=== PATIENT | male | born 1980 | race Caucasian/White ===

== ENCOUNTER 2020-05-14 17:44 | Emergency (ER) | payer OTHER, BC, SELFPAY ==
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
[2020-05-14 18:03] VITALS: BP 139/85; PULSE 71; RESP 18; TEMP 36; O2SAT 98
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
[2020-05-14 20:29] VITALS: BP 135/81; PULSE 70; RESP 18; O2SAT 97
== END 2020-05-14 20:31 | disposition home or self-care (01) ==
PROVIDERS: Emergency Provider Emergency Medicine; PCP Family Medicine
DX: S16.1XXA Strain of muscle, fascia and tendon at neck level, initial encounter (principal); V49.40XA Driver injured in collision with unspecified motor vehicles in traffic accident, initial encounter
CPT/HCPCS: 72125; 72128; 99284

== ENCOUNTER → 2021-12-11 08:23 | Outpatient (CLI) | payer BC, SELFPAY ==
--- NOTE | ~2021-12-11 | XR_ITS ---
EXAMINATION: XR thoracic spine 2V DATE: 12/11/2021 08:59 INDICATION: Mid back pain TECHNIQUE: AP, lateral and lateral swimmer's views of the thoracic spine were obtained. COMPARISON: 05/14/2020 FINDINGS: There is no fracture, dislocation, or subluxation. The vertebral body heights, alignment, a nd intervertebral disc spaces are normal. The paravertebral soft tissues are unremarkable. IMPRESSION: 1. Unremarkable thoracic spine. Reviewed, dictated and finalized at location F.
--- NOTE | ~2021-12-11 | XR_ITS ---
EXAMINATION: XR lumbar spine 2-3V DATE: 12/11/2021 08:59 INDICATION: Low back pain TECHNIQUE: Anteroposterior and lateral views of the lumbar spine, and cone-down lateral view of the l umbosacral junction were obtained. COMPARISON: 03/12/2018 FINDINGS: There is no fracture, dislocation, or subluxation. The vertebral body heights and intervert ebral disc spaces are normal. There is mild facet osteoarthritis of the lower lumbar spine. The bowel gas pattern is normal. IMPRESSION: 1. Unchanged mild facet osteoarthritis of the lower lumbar spine. Reviewed, dictated and finalized at location F.
--- NOTE | ~2021-12-11 | XR_ITS ---
EXAMINATION:XR_CERV2-3V_CR DATE: 12/11/2021 08:59 INDICATION: Neck pain TECHNIQUE: AP, lateral, and odontoid views of the cervical spine are provided. COMPARISON: None FINDINGS: There is reversal of the cervical spine which can be positional or due to muscular spasm. T he odontoid is not well demonstrated on the AP views but appears to be intact. No fracture is identif ied. Vertebral body heights and disk spaces are normal. Prevertebral soft tissues are normal. IMPRESSION: 1. No acute osseous abnormality. Reviewed, dictated and finalized at location F.
== END ==
PROVIDERS: PCP Family Medicine; Visit Provider Chiropractor
DX: M54.2 Cervicalgia (principal); M47.816 Spondylosis without myelopathy or radiculopathy, lumbar region; M54.6 Pain in thoracic spine
CPT/HCPCS: 72040; 72070; 72100

== ENCOUNTER → 2022-04-30 10:37 | Outpatient (CLI) | payer BC, SELFPAY ==
--- NOTE | ~2022-04-30 | XR_ITS ---
EXAM: XR shoulder LT min 2V DATE: 04/30/2022 10:57 HISTORY: HEARD A POP WHEN PUTING SHIRT ON PAIN RAISING ARM . COMPARISON: None available. FINDINGS: Normal mineralization. No fracture or dislocation. No lytic or blastic lesion. Very mild d egenerative change at the AC joint. No erosion or periosteal change. Soft tissues within normal limit s. IMPRESSION: No acute osseous finding in the left shoulder. Reviewed, dictated and finalized at location K.
== END ==
PROVIDERS: PCP Family Medicine; Visit Provider Nurse Practitioner Gerontology
DX: M25.512 Pain in left shoulder (principal)
CPT/HCPCS: 73030

== ENCOUNTER 2022-07-07 14:13 | Emergency (ER) | payer BC, SELFPAY ==
[2022-07-07 14:45] VITALS: BP 139/94; PULSE 73; RESP 18; TEMP 36.3; O2SAT 97
--- NOTE | 2022-07-07 16:16 | ED.NECK ---
HPI - Neck Pain/Injury General Chief Complaint: Neck Pain/Injury Stated Complaint: neck pain, no injury Time Seen by Provider: 07/07/22 15:55 History of Present Illness HPI Narrative: 41-year-old male here for evaluation of right-sided neck pain over the past 2 weeks. Patient states that the pain is intermittent in nature, worse when he turns his head to the left or right. The pain originates in his right trapezius muscle and moves up behind his ear. Has attempted Tylenol, ibuprofen, methocarbamol without relief of his symptoms. Last PCP upon symptom onset and was diagnosed with migraine and was given Fioricet without much relief of his pain. Denies fevers, chills, nausea, vomiting, changes to his vision, stiffness in the neck, history of malignancy. he has a history of drug abuse but never IVDU. Related Data Home Medications Medication Instructions Recorded Confirmed anastrozole 1 mg tablet 1 mg PO WEEKLY 01/02/21 07/04/22 testosterone cypionate 100 mg/mL 100 mg IM WEEKLY 01/02/21 07/04/22 intramuscular oil Allergies Allergy/AdvReac Type Severity Reaction Status Date / Time No Known Allergies Allergy Verified 07/07/22 15:27 Review of Systems Review of Systems: Gen: Denies fevers or chills Eyes: Denies eye pain or visual change ENT: Denies congestion Respiratory: Denies shortness of breath or cough CV: Denies chest pain or palpitations GI: Denies abdominal pain nausea, emesis or diarrhea : denies burning, urgency, frequency or hematuria Musculoskeletal: Reports neck pain. Denies back pain or muscle pain Neuro: Denies numbness, tingling, weakness or focal weakness Skin: Denies rash Except as documented, all other systems reviewed and negative [facility] Past Medical History Medical History Allergies Elevated liver enzymes History of anabolic steroid use Hyperlipidemia Hypogonadism in male Low testosterone Strain of muscle and tendon of back wall of thorax, subsequent encounter Surgical History Surgical History Vasectomy status Family History Family History Grandparent Hypertension Family history of elevated blood lipids Cerebrovascular accident, Onset Age: 76 Diabetes mellitus Mother Family history of diabetes mellitus in first degree relative Social History Social History (Updated 07/04/22 @ 07:58 by Radha Calderon) Social History: Smoking status: Never smoker Second hand tobacco smoke exposure: No Alcohol intake: never Substance use: never Substance use type: does not use Gender identity (if verbalized by the patient): Male Sexual Orientation (if Verbalized by the Patient): Straight or Heterosexual Exam Narrative: APPEARANCE: Well appearing, no pain in distress, well-nourished. Head: Normocephalic and atraumatic. EYES: PERRLA/EOMI, conjunctivae clear NOSE: No nasal drainage EARS: External ear normal in appearance THROAT: Oropharynx is clear. Mucous membranes are moist. NECK: No midline tenderness to C-spine. Paraspinal muscle tenderness present to the right trapezius. Full range of motion in neck, notes some pain with left lateral rotation. RESPIRATORY: Airway patent, respirations nonlabored. Clear to auscultation bilaterally, no rales, rhonchi, wheezing. CARDIOVASCULAR: Regular rate and rhythm without murmurs, rubs, or gallops. ABDOMINAL: Normoactive bowel sounds. Soft, nontender, nondistended. No rebound tenderness or guarding. MUSCULOSKELETAL: Extremities are warm and well-perfused. Moves all extremities well. No edema. NEURO: Normal speech. No focal neurologic deficits. SKIN: Skin is warm and dry. No rashes. PSYCHIATRIC: Normal affect/mood. Course Vital Signs Vital signs: Vital Signs Temperature 97.3 F L 07/07/22 14:45 Pulse Rate 73 07/07/22 14:45 Respiratory Rate
== END 2022-07-07 16:23 | disposition home or self-care (01) ==
PROVIDERS: Emergency Provider Physician Assistant; PCP Family Medicine
DX: S13.9XXA Sprain of joints and ligaments of unspecified parts of neck, initial encounter (principal); E78.5 Hyperlipidemia, unspecified; X58.XXXA Exposure to other specified factors, initial encounter
CPT/HCPCS: 99283

== ENCOUNTER 2023-08-25 09:26 | Outpatient (CLI) | payer BC, SELFPAY ==
--- NOTE | ~2023-08-25 | US_ITS ---
Abdominal Sonogram: Real-time sonographic imaging of the abdomen was performed. Clinical History: Abnormal findings of blood chemistry Findings: The liver appears echogenic, with no evidence of mass lesion or bile duct dilatation. Main portal vein demonstrates normal direction of flow. The spleen is normal in size without evidence of focal lesion. The gallbladder is well distended, and appears normal with no evidence of gallstone or wall thickening. The common bile duct measures 2 mm. The visualized pancreas, aorta, and IVC are un remarkable. The right kidney measures 13.0 cm in length and the left kidney measures 11.7 cm. There is no hydronephrosis or renal calculus. Impression: Diffuse fatty infiltration of liver. Reviewed, dictated and finalized at location M. L COORDINATOR Impression: Diffuse fatty infiltration of liver.
== END 2023-08-25 09:27 | disposition home or self-care (01) ==
LOC: ANHIMG 09:27
PROVIDERS: PCP Family Medicine; Visit Provider Physician Assistant
DX: R79.89 Other specified abnormal findings of blood chemistry (principal); K76.0 Fatty (change of) liver, not elsewhere classified
CPT/HCPCS: 76700

== ENCOUNTER 2023-09-01 13:25 | Outpatient (CLI) | payer BC, SELFPAY ==
--- NOTE | 2023-09-01 14:30 | NEURO_ITS ---
Impression: # Complains of hand numbness, not diabetic. # Evolving bilateral Carpal Tunnel Syndrome. # No ulnar neuropathy. # Normal needle/EMG exam. Nerve Conduction Studies Anti Sensory Summary Table Stim Site NR Peak (ms) P-T Amp (?V) Site1 Site2 Delta-P (ms) Dist (cm) Barron (m/s) Left Median Anti Sensory (2-3nd Digit) Wrist 3.3 27.4 Wrist 2-3nd Digit 3.3 14.0 42 Wrist 3.4 54.6 Wrist 2-3nd Digit 3.3 14.0 42 Right Median Anti Sensory (2-3nd Digit) Wrist 3.4 23.4 Wrist 2-3nd Digit 3.4 14.0 41 Wrist 3.3 23.8 Wrist 2-3nd Digit 3.4 14.0 41 Left Radial Anti Sensory (Base 1st Digit) Wrist 1.9 31.9 Wrist Base 1st Digit 1.9 0.0 Right Radial Anti Sensory (Base 1st Digit) Wrist 2.2 27.1 Wrist Base 1st Digit 2.2 0.0 Left Ulnar Anti Sensory (5th Digit) Wrist 2.6 11.7 Wrist 5th Digit 2.6 14.0 54 Right Ulnar Anti Sensory (5th Digit) Wrist 2.6 9.3 Wrist 5th Digit 2.6 14.0 54 Motor Summary Table Stim Site NR Onset (ms) O-P Amp (mV) Site1 Site2 Delta-0 (ms) Dist (cm) Barron (m/s) Left Median Motor (Abd Poll Brev) Wrist 3.4 1.6 Elbow Wrist 5.2 32.0 62 Elbow 8.6 1.8 Right Median Motor (Abd Poll Brev) Wrist 3.8 2.2 Elbow Wrist 5.5 32.0 58 Elbow 9.3 2.0 Left Ulnar Motor (Abd Dig Minimi) Wrist 2.5 8.1 A Elbow Wrist 5.5 32.0 58 A Elbow 8.0 7.1 Right Ulnar Motor (Abd Dig Minimi) Wrist 2.3 5.5 A Elbow Wrist 5.6 32.0 57 A Elbow 7.9 5.0 F Wave Studies NR F-Lat (ms) L-R F-Lat (ms) Left Median (Mrkrs) (Abd Poll Brev) 29.16 0.19 Right Median (Mrkrs) (Abd Poll Brev) 29.35 0.19 Left Ulnar (Mrkrs) (Abd Dig Min) 29.03 0.84 Right Ulnar (Mrkrs) (Abd Dig Min) 29.87 0.84 EMG Side Muscle Nerve Root Ins Act Fibs Amp Dur Recrt Comment Right 1stDorInt Ulnar C8-T1 Nml Nml Nml Nml Nml Right Ext Indicis Radial (Post Int) C7-8 Nml Nml Nml Nml Nml Right Ext Digitorum Radial (Post Int) C7-8 Nml Nml Nml Nml Nml Right BrachioRad Radial C5-6 Nml Nml Nml Nml Nml Right PronatorTeres Median C6-7 Nml Nml Nml Nml Nml Right Abd Poll Brev Median C8-T1 Nml Nml Nml Nml Nml Right ABD Dig Min Ulnar C8-T1 Nml Nml Nml Nml Nml Left 1stDorInt Ulnar C8-T1 Nml Nml Nml Nml Nml Left Ext Indicis Radial (Post Int) C7-8 Nml Nml Nml Nml Nml Left Ext Digitorum Radial (Post Int) C7-8 Nml Nml Nml Nml Nml Left BrachioRad Radial C5-6 Nml Nml Nml Nml Nml Left PronatorTeres Median C6-7 Nml Nml Nml Nml Nml Left Abd Poll Brev Median C8-T1 Nml Nml Nml Nml Nml Left ABD Dig Min Ulnar C8-T1 Nml Nml Nml Nml Nml MTDD
== END 2023-09-01 13:26 | disposition home or self-care (01) ==
LOC: ANHNEURO 13:27
PROVIDERS: PCP Family Medicine; Visit Provider Physician Assistant
DX: R20.0 Anesthesia of skin (principal); E78.5 Hyperlipidemia, unspecified; R20.2 Paresthesia of skin; R74.8 Abnormal levels of other serum enzymes; G56.03 Carpal tunnel syndrome, bilateral upper limbs
CPT/HCPCS: 95886; 95911

== ENCOUNTER 2024-07-14 21:12 | Emergency (ER) | payer BC, SELFPAY ==
[2024-07-14 21:27] VITALS: BP 117/69; PULSE 145; RESP 20; TEMP 38; O2SAT 96
[2024-07-14 22:28] LABS: Influenza A QL RT-PCR Negative (Negative); Influenza B QL RT-PCR Negative (Negative); RSV RNA, RT-PCR Negative (Negative); SARS-CoV-2 RNA PCR Negative (Negative)
== END 2024-07-14 23:50 | disposition left against medical advice (07) ==
LOC: ANHED 23:02
PROVIDERS: Emergency Provider Emergency Medicine; PCP Family Medicine
DX: R06.02 Shortness of breath (principal); Z20.822 Contact with and (suspected) exposure to COVID-19
CPT/HCPCS: 87637; 99199

== ENCOUNTER 2024-08-11 16:47 | Outpatient (CLI) | payer BC, SELFPAY ==
--- NOTE | ~2024-08-11 | XR_ITS ---
EXAM: XR knee LT 3V DATE: 08/11/2024 17:02 HISTORY: M25.562 - Pain in left knee . COMPARISON: None available. FINDINGS: Normal mineralization. No fracture or dislocation. No lytic or blastic lesion. Mild medial joint space narrowing. Mild tricompartmental osteophytosis. Moderate volume joint fluid. No erosion or periosteal change. Soft tissues within normal limits. IMPRESSION: Mild tricompartmental left knee osteoarthritis. Moderate knee joint effusion. Reviewed, dictated and finalized at location K. [employer] SCHOOL TECHNOLOGY TEACHER
--- OUTSIDE RECORDS SUMMARY | 2024-08-11 16:51 | XMS_ITS | Clinical Summary ---
Author Organization [facility] [employer] mentor | [employer] Address [address] [place] [address] Care Team Providers Care Insole Stiffener Name Role Phone Bianca Copeland MD Primary Care Provider + Source Comments [facility] [employer] mentor | [employer],non-owned Affiliates and Associated Physician Practices is amultiple site organization consisting of ambulatory clinics and hospital sitesin [place], [place], [place] and [place]. This disclosure is being madepursuant to the Care Everywhere program and may not contain all information available regarding this patient. Last updated 18.[employer] mentor | invest Allergies No known active allergies Medications * Be aware that medications may not be up to date on this document. Alwaysverify current medications with the patient. Medication Sig Dispensed Refills Start Date End Date Status predniSONE (DELTASONE) 10 MG tabletIndications:Rash 40mg daily for 3 days then 20mg daily for 2 days then stop 16 Tab 09/19/2016 Active Social History Tobacco Use Types Packs/Day Years Used Date Smoking Tobacco: Never Sex and Gender Information Value Date Recorded Sex Assigned at Not on file Gender Identity Not on file Sexual Orientation Not on file Last Filed Vital Signs Vital Sign Reading Time Taken Comments Blood Pressure 118/76 09/19/2016 2:27 PM LEAD NITRATE PROCESSOR Pulse 71 09/19/2016 2:27 PM LEAD NITRATE PROCESSOR Temperature 36.9 ??C (98.4 ??F) 09/19/2016 2:27 PM CS T Respiratory Rate 16 09/19/2016 2:27 PM LEAD NITRATE PROCESSOR Oxygen Saturation 97% 09/19/2016 2:27 PM LEAD NITRATE PROCESSOR Inhaled Oxygen Concentration - - Weight 95.3 kg (210 lb) 09/19/2016 2:27 PM LEAD NITRATE PROCESSOR Height 182.9 cm (6') 09/19/2016 2:27 PM LEAD NITRATE PROCESSOR Body Mass Index 28.48 09/19/2016 2:27 PM LEAD NITRATE PROCESSOR Plan of Treatment Health Maintenance Due Date Last Done Comments LIPID TESTING 1981 HIV SCREENING 1996 HEPATITIS C SCREENING 11/26/1999 DTAP/TDAP/TD VACCINES (1 - Tdap) 2000 HEPATITIS B VACCINE (1 of 3 - 19+ 3-dose series) 2000 COVID-19 VACCINE (1 - 2023-2 5 season) 2024 INFLUENZA VACCINE (#1) 2024 DEPRESSION SCREENING 07/13/2024 ZOSTER VACCINE (1 of 2) 12/01/2031 HIB VACCINE Aged Out No longer eligi ble based on patient's age to complete this topic HPV VACCINE Aged Out No longer eligi ble based on patient's age to complete this topic MENINGOCOCCAL (Group B) VACCINE Aged Out No longer eligible based on patient's age to complete this topic MENINGOCOCCAL VACCINE Aged Out No samreen campos eligible based on patient's age to complete this topic PNEUMOCOCCAL VACCINE Aged Out No long er eligible based on patient's age to complete this topic Care Teams Insole Stiffener Relationship Specialty Start Date End Date Bianca Copeland MD [address] [place] [address] PCP - General Family Medicine 03/19/16"
--- OUTSIDE RECORDS SUMMARY | 2024-08-11 16:51 | XMS_ITS | Clinical Summary ---
Author Organization [facility] Address [address] [place] [address]. [place] [address] [place] [address] Care Team Providers Care Clay Transporter Name Role Phone Bianca Copeland MD Primary Care Provider [phone] Allergies No known active allergies Medications XYOSTED 100 MG/0.5ML Solution Auto-injector Inject 100 mg into the muscle once a week. 06/27/2024 Active amoxicillin-cla vulanate (AUGMENTIN) 875-125 MG tablet Take 1 tablet (875 mg total) by mouth every 12 (twelve) hours for 4 days. 8 tablet 07/16/2024 5 dextromethorpha n-guaiFENesin ER (MUCINEX DM) 30-600 MG TABLET SR 12 HR 12 hr tablet Take 1 tablet by mouth every 12 (twelve) hours as needed. 10 tablet 07/16/2024 5 cyclobenzaprine (FLEXERIL) 5 MG tablet Take 1 tablet (5 mg total) by mouth 3 (three) times daily as needed for Muscle Spasms. 9 tablet 07/16/2024 5 Active Problems Problem Noted Date Diagnosed Date Pneumonia 07/15/2024 Encounters Date Type Department Care Team Description 07/15/2024 9:36 AM CHROME TANNER - 07/16/2024 12:18 PM [facility]ROME T[facility]NER Emergency [facility] Med/Surg [address] [place] [address] Paul Kennedy, Aileen Gunderson MD Back Pain; Pleuritic Chest Pain Discharge Disposition: Home or Self Care (Routine Discharge) 07/15/2024 Travel from Last 3 Months Social History Tobacco Use Types Packs/Day Years Used Date Smoking Tobacco: Never Smokeless Tobacco: Never Tobacco Cessation:Counseling Given: Not Answered Alcohol Use Standard Drinks/Week Comments Never 0 (1 standard drink = 0.6 oz pur e alcohol) B1300 Health Literacy Answer Date Recor ded How often do you need to hav e someone help you when you read instructions, pamphlets, or other written material from your doctor or pharmacy? Never 07/15/2024 [facility] Utilities Answer Date Recorded In the past 12 months has e [employer], gas, oil, or water [employer] threatened to shut off services in your home? No 07/15/2024 Humiliation, Afraid, Rape, and Kick questionnair e Answer Date Recorded Within the last year, have y ou been afraid of your partner or ex-partner? No 07/15/2024 Within the last year, have y ou been humiliated or emotionally abused in other ways by your partner or ex-partner? No Within the last year, have y ou been kicked, hit, slapped, or otherwise physically hurt by your partner or ex-partner? No 07/15/2024 Within the last year, have y ou been raped or forced to have any kind of sexual activity by your partner or ex-partner? No 07/15/2024 Social Connection and Isolation Panel [NHANES] A nswer Date Recorded In a typical week, how many times do you talk on the phone with family, friends, or neighbors? Once a week 07/15/2024 How often do you get together with friends or re latives? Never 07/15/2024 How often do you attend anglican or hindu serv ices? Never 07/15/2024 Do you belong to any clubs o r organizations such as anglican groups, unions, fraternal or athletic groups, or school groups? No 07/15/2024 How often do you attend meet ings of the clubs or organizations you belong to? Never 07/15/2024 Are you , , di vorced, , never , or living with a partner? 07/15/2024 AUDIT-C Answer Date Recorded Q1: How often do you have a drink containing alcohol? Never 07/15/2024 Q2: How many drinks containi ng alcohol do you have on a typical day when you are drinking? Patient does not drink Q3: How often do you have si x or more drinks on one occasion? Never 07/15/2024 Overall Financial Resource Strain (CARDIA) Answe r Date Recorded How hard is it for you to pa y for the very basics like food, housing, medical care, and heating? Not hard at all 07/15/2024 [facility] - Occupational Stress Questionnaire Answer Date Recorded Do you feel stress - tense, restless, nervous, or anxious, or unable to sleep at night because your mind is troubled all the time - these days? Not at all 07/15/2024 Exercise Vital Sign Answer Date Recorde d On average, how many days pe r week do you engage in moderate to strenuous exercise (like a brisk walk)? 5 days 07/15/2024 On average, how many minutes do you engage in exercise at this level? 60 min 07/15/2024 Hunger Vital Sign Answer Date Recorded Within the past 12 months, y ou worried that your food would run out before you got the money to buy more. Never true 07/15/19 25 Within the past 12 months, t he food you bought just didn't last and you didn't have money to get more. Never true 07/15/2024 PRAPARE - Transportation Answer Date Re corded In the past 12 months, has l ack of transportation kept you from medical appointments or from getting medications? No 09/2024 In the past 12 months, has l ack of transportation kept you from meetings, work, or from getting things needed for daily living? No 07/15/2024 Housing Stability Vital Sign Answer Kash e Recorded In the last 12 months, was t here a time when you were not able to pay the mortgage or rent on time? No 07/15/2024 In the past 12 months, how m any times have you moved where you were living? 0 07/15/2024 At any time in the past 12 m [facility], were you homeless or living in a senior living (including now)? No 07/15/2024 Sex and Gender Information Value Date Recorded Sex Assigned at Not on file Legal Sex Male 6:48 PM CHROME TANNER Gender Identity Not on file Sexual Orientation Not on file Last Filed Vital Signs Vital Sign Reading Time Taken Comments Blood Pressure 131/65 07/16/2024 8:30 AM [facility] T[facility]NER Pulse 95 07/16/2024 8:30 AM [facility]ROME TANNER Temperature 36.5 ??C (97.7 ??F) 07/16/2024 8:30 AM CS T Respiratory Rate 17 07/16/2024 8:30 AM CHROME TANNER Oxygen Saturation 98% 07/16/2024 8:30 AM [facility]OME TANNER Inhaled Oxygen Concentration - - Weight 113.9 kg (251 lb 1.7 oz) 07/15/2024 9:32 AM [facility]OME TANNER Height 185.4 cm (6' 1 ) 07/15/2024 9:32 AM [facility]ROME TANNER Body Mass Index 33.13 07/15/2024 9:32 AM CHROME TANNER Plan of Treatment Health Maintenance Due Date Last Done Comments Annual Physical 1984 Hepatitis C 12/01/1999 Hepatitis B Vaccines (1 of 3 - 19+ 3-dose series) 2000 COVID-19 Vaccine ( - 2023-2 5 season) 2024 04/26/2021, 03/30/2021 Influenza Adult (#1) 2024 05/15/2020 DTaP, Tdap and Td Vaccines ( 2 - Td or Tdap) 04/25/2028 04/25/2018 HPV Vaccines Aged Out No longer eligi ble based on patient's age to complete this topic Meningococcal B Vaccine Aged Out No l onger eligible based on patient's age to complete this topic Meningococcal Vaccine Aged Out No samreen campos eligible based on patient's age to complete this topic Pneumococcal Vaccine: Pediatrics (0 to 5 Years) and At-Risk Patients (6 to 64 Years) Aged Out No longer eligible b ased on patient's age to complete this topic RSV Immunizations Under 20 Months Aged Out No longer eligible b ased on patient's age to complete this topic Procedures Procedure Name Priority Date/Time Associated Diagnosis Comments BASIC METABOLIC PANEL Routine 07/16/2024 4:39 AM CHROME TANNER CBC W/DIFF AUTOMATED Routine 07/16/2024 4:39 AM CHROME TANNER CULTURE, BACTERIA, BLOOD STAT 07/15/2024 3:37 PM [facility]ROME TANNER RESPIRATORY PCR PANEL 2 STAT 07/15/2024 2:25 PM [facility] TANNER LACTIC ACID W REFLEX (SEPSIS) STAT 07/15/2024 2:18 PM CHROME TANNER CTA CHEST PE PROTOCOL STAT 07/15/2024 12:22 PM [facility]ROME TANNER TROPONIN, QUANT STAT 07/15/2024 11:46 AM CHROME TANNER XR CHEST PORTABLE STAT 07/15/2024 10: 00 AM CHROME TANNER D-DIMER, QUANTITATIVE STAT 07/15/2024 9:43 AM CHROME TANNER TROPONIN, QUANT STAT 07/15/2024 9:43 AM [facility]ROME TANNER COMPREHENSIVE METABOLIC PANEL STAT 07/15/2024 9:43 AM CHROME TANNER CBC W/DIFF AUTOMATED STAT 07/15/2024 9:43 AM CHROME TANNER CRITICAL CARE Routine 07/15/2024 9:36 AM CHROME TANNER ECG 12-LEAD STAT 07/15/2024 9:34 AM CHROME TANNER from Last 3 Months Results * (ABNORMAL) BASIC METABOLIC PANEL (07/16/2024 4:39 AM CHROME TANNER) GLUCOSE 237(H) 70 - 99 MG/DL 07/16/2024 5:08 AM [facility] TAN[facility] BUN 28(H) 7 - 18 MG/DL 07/16/2024 5:08 AM [facility] T[facility] CREATININE S/P/B 1.28 0.7 - 1.3 MG/DL 07/16/2024 5:08 AM [facility] TANNER [facility] SODIUM S/P/B 135(L) 136 - 145 MMOL/L 07/16/2024 5:08 AM [facility] POTASSIUM S/P/B 3.6 3.5 - 5.1 MMOL/L 07/16/2024 5:08 AM [facility] CHLORIDE S/P/B 104 97 - 115 MMOL/L 07/16/2024 5:08 AM [facility] CO2 27.5 21 - 32 MMOL/L 07/16/2024 5:08 AM [facility] CALCIUM S/P/B 9.0 8.5 - 10.1 MG/DL 07/16/2024 5:08 AM [facility] ANION GAP 3.5 2 - 10 MMOL/L 07/16/2024 5:08 AM [facility] BUN CREATININE RATIO 21.9 6 - 26 07/16/2024 5:08 AM [facility] GFR ESTIMATE 72(L) >90 ML/MIN/1.7 3 M2 07/16/2024 5:08 AM [facility] Comment: NOTE: eGFR is not calculated for patients <18 years of age or gender unknown. This is an estimated GFR calculation using the new CKD EPI creatinine equation without race and so does not require a correction factor for race. This estimated GFR should not be used for calculating drug doses. 07/16/2024 4:39 AM [facility] TANNER Aileen Mahmood MD LABORATORY Final Res ult [facility] [address] [place] [address], * (ABNORMAL) CBC W/DIFF AUTOMATED (07/16/2024 4:39 AM [facility]OME TANNER) Only the most recent of2 resultswithin the time period is included. WBC 18.80(H) 4.5 - 11.0 x10'3/uL 07/16/2024 5:13 AM [facility] RBC 5.25 4.70 - 6.10 x10'6/uL 07/16/2024 5:13 AM [facility] HGB 14.6 14.0 - 18.0 G/DL 07/16/2024 5:13 AM [facility] HCT 42.9(L) 43.0 - 54.0 % 07/16/2024 5:13 AM [facility] MCV 81.7 80.0 - 94.0 FL 07/16/2024 5:13 AM [facility] MCH 27.8 27.0 - 31.0 PG 07/16/2024 5:13 AM [facility] MCHC 34.0 32.0 - 36.0 G/DL 07/16/2024 5:13 AM [facility] RDW 13.0 11.5 - 14.5 % 07/16/2024 5:13 AM [facility] PLT 183 130 - 400 x10'3/uL 07/16/2024 5:13 AM [facility] MPV 10.0 9.3 - 12.2 FL 07/16/2024 5:13 AM [facility] DIFFERENTIAL TYPE MANUAL DIFFERENTIAL 07/16/2024 5:20 AM [facility] SEG NEUTROPHILS 83 % 5:20 AM [facility] LYMPHOCYTES 4 % 07/16/2024 5:20 AM [facility] MONOCYTES 1 % 07/16/2024 5:20 AM [facility] BANDS 12 % 07/16/2024 5:20 AM [facility] NRBC 1(H) 0 /100 WBC 07/16/2024 5:20 AM [facility] ABS. NEUTROPHILS 17.86(H) 1.80 - 7.70 x10'3/uL 07/16/2024 5:20 AM [facility] ABS. LYMPHOCYTES 0.75(L) 1.00 - 4.80 x10'3/uL 07/16/2024 5:20 AM [facility] ABS. MONOCYTES 0.19(L) 0.30 - 0.82 x10'3/uL 07/16/2024 5:20 AM [facility] ABS. NUCLEATED RBC'S 0.19(H) 0.00 - 0.01 x10'3/uL 07/16/2024 5:20 AM [facility] RBC MORPHOLOGY SLIDE REVIEWED 2024 5:20 AM [facility] ACANTHOCYTES 1+ 07/16/2024 5:20 AM [facility] PLT EST. ADEQUATE 07/16/2024 5:20 AM [facility] 07/16/2024 4:39 AM CHROME TANNER us Aileen Mahmood MD LABORATORY Final Res ult [facility] [address] [place] [address], * CULTURE, BACTERIA, BLOOD (07/15/2024 3:37 PM [facility] TANNER) SPEC DESCRIPTION BLOOD 07/15/2024 1:39 PM [facility] SPECIAL REQUESTS NO SPECIAL REQUEST 07/15/2024 1:39 PM [facility] CULTURE RESULT NO GROWTH 5 DAYS 07/20/2024 6:37 AM [facility] BLOOD SPECIMEN OBTAINED FOR BLOOD CULTURE / Unknown 07/15/2024 3:37 PM [facility]NER 07/15/2024 3:45 PM [facility]ANNER Paul Kennedy PA-C MICROBIOLOGY - GENERAL HUMBERTO STEWARD Final Result [facility] [address] [place] [address], * (ABNORMAL) RESPIRATORY PCR PANEL 2 (07/15/2024 2:25 PM [facility]OME TANNER) Pathologist [facility] ADENOVIRUS PCR (RESP) NOT DETECTED NOT DETECTED 07/15/2024 3:27 PM [facility] T[facility] CORONAVIRUS 229E PCR (RESP) NOT DETECTED NOT DETECTED 07/15/2024 3:27 PM [facility] T[facility] CORONAVIRUS HKU1 PCR (RESP) NOT DETECTED NOT DETECTED 07/15/2024 3:27 PM [facility] TAN[facility] CORONAVIRUS NL63 PCR (RESP) NOT DETECTED NOT DETECTED 07/15/2024 3:27 PM [facility] T[facility] CORONAVIRUS OC43 PCR (RESP) NOT DETECTED NOT DETECTED 07/15/2024 3:27 PM [facility] T[facility] METAPNEUMOVIRUS PCR (RESP) NOT DETECTED NOT DETECTED 07/15/2024 3:27 PM [facility] T[facility] RHINOVIRUS/ENTEROV IRUS PCR (RESP) NOT DETECTED NOT DETECTED 07/15/2024 3:27 PM [facility] T[facility] INFLUENZA A PCR (RESP) NOT DETECTED NOT DETECTED 07/15/2024 3:27 PM [facility] T[facility] INFLUENZA B PCR (RESP) NOT DETECTED NOT DETECTED 07/15/2024 3:27 PM [facility] T[facility] PARAINFLUENZA 1 PCR (RESP) NOT DETECTED NOT DETECTED 07/15/2024 3:27 PM [facility] T[facility] PARAINFLUENZA 2 PCR (RESP) NOT DETECTED NOT DETECTED 07/15/2024 3:27 PM [facility] TANNER [facility] PARAINFLUENZA 3 PCR (RESP) NOT DETECTED NOT DETECTED 07/15/2024 3:27 PM [facility] TAN[facility] PARAINFLUENZA 4 PCR (RESP) NOT DETECTED NOT DETECTED 07/15/2024 3:27 PM [facility] T[facility] RSV PCR (RESP) DETECTED(A) NOT DETECTED 07/15/2024 3:27 PM [facility] T[facility]NER [facility] B PARAPERTUSIS PCR (RESP) NOT DETECTED NOT DETECTED 07/15/2024 3:27 PM [facility] T[facility] BORDETELLA PERTUSSIS PCR (RESP) NOT DETECTED NOT DETECTED 07/15/2024 3:27 PM [facility] T[facility] CHLAMYDOPHILA PNEUMONIAE PCR (RESP) NOT DETECTED NOT DETECTED 07/15/2024 3:27 PM [facility] MYCOPLASMA PNEUMONIAE PCR (RESP) NOT DETECTED NOT DETECTED 07/15/2024 3:27 PM [facility] T[facility] CORONAVIRUS SARS COV 2 PCR (RESP) NOT DETECTED NOT DETECTED 07/15/2024 3:27 PM [facility] NASOPHARYNGEAL SWAB / Unknown 07/15/2024 2:25 PM [facility] Aileen Mahmood MD MICROBIOLOGY - GENERAL OR DERABLES Final Result [facility] [address] [place] [address], [place] [phone] * LACTIC ACID W REFLEX (SEPSIS) (07/15/2024 2:18 PM [facility]) LACTIC ACID VENOUS 2.0 0.4 - 2.0 MMOL/L 07/15/2024 2:55 PM [facility] 07/15/2024 2:18 PM [facility] Paul Kennedy PA-C LABORATORY Final Resul t [facility] [address] [place] [address], * CTA CHEST PE PROTOCOL (07/15/2024 12:22 PM [facility]NER) Anatomical Region Laterality Modality Chest Computed Tomogra phy 07/15/2024 1:10 PM [facility] Impressions 07/15/2024 1:13 PM [facility] IMPRESSION: Somewhat suboptimal opacification of the pulmonary arteries, possibly related to phase of contrast. ??No evidence of large or central pulmonary embolism. Consolidation in short of the left lower lobe concerning for pulmonary edema. ??Given the minimal air bronchograms, follow-up the resolution recommended to exclude underlying neoplasm. 3 month follow-up CT recommended. Limited evaluation of the upper abdomen demonstrates diffuse hepatic steatosis. ??Correlation for steatohepatitis recommended. Referred By: ?? Interpreted By: Rosendo Panchal MD, 07/15/2024 1:10 PM Narrative 07/15/2024 1:13 PM [facility] [address] [place], [place] [address] EXAMINATION: CT ANGIOGRAM CHEST WITH CONTRAST EXAM DATE: 07/15/2024 12:18 PM REASON FOR EXAM: ??pain, hemoptysis, elevated dimer ?? COMPARISON: None TECHNIQUE: Axial images through the chest after injection of 80 mL Isovue-370. 3-D post processed images were reconstructed on an independent workstation with concurrent physician supervision. Dose lowering technique was used for this study which may include, but is not limited to, dose reduction techniques, automated exposure control, use of iterative ??reconstruction and ALARA (As low As Reasonably Achievable)/Image Gently techniques. FINDINGS: Somewhat suboptimal opacification of the pulmonary arteries, possibly related to phase of contrast. ??No evidence of large or central pulmonary embolism. Consolidation in short of the left lower lobe concerning for pulmonary edema. ??Given the minimal air bronchograms, follow-up the resolution recommended to exclude underlying neoplasm. No pneumothorax. ??No pleural effusion. No axillary or supraclavicular lymphadenopathy. ??Bilateral gynecomastia. Heart size normal. ??No pleural effusion. No mediastinal or hilar lymphadenopathy. Limited evaluation of the upper abdomen demonstrates diffuse hepatic steatosis. ??Correlation for steatohepatitis recommended. Bones: No suspicious lesion or fracture. Procedure Note Rosendo Panchal MD - 07/15/[address] [address] EXAMINATION: CT ANGIOGRAM CHEST WITH CONTRAST EXAM DATE: 07/15/2024 12:18 PM REASON FOR EXAM: pain, hemoptysis, elevated dimer COMPARISON: None TECHNIQUE: Axial images through the chest after injection of 80 mLIsovue-370. 3-D post processed images were reconstructed on an independent workstationwith concurrent physician supervision. Dose lowering technique was used for this study which may include, but isnot limited to, dose reduction techniques, automated exposure control, use of iterativereconstruction and ALARA (As low As Reasonably Achievable)/Image Gently techniques. FINDINGS: Somewhat suboptimal opacification of the pulmonary arteries, possiblyrelated to phase of contrast. No evidence of large or central pulmonaryembolism. Consolidation in short of the left lower lobe concerning for pulmonaryedema. Given the minimal air bronchograms, follow-up the resolutionrecommended to exclude underlying neoplasm. No pneumothorax. No pleural effusion. No axillary or supraclavicular lymphadenopathy. Bilateral gynecomastia. Heart size normal. No pleural effusion. No mediastinal or hilar lymphadenopathy. Limited evaluation of the upper abdomen demonstrates diffuse hepaticsteatosis. Correlation for steatohepatitis recommended. Bones: No suspicious lesion or fracture. IMPRESSION: Somewhat suboptimal opacification of the pulmonary arteries, possiblyrelated to phase of contrast. No evidence of large or central pulmonaryembolism. Consolidation in short of the left lower lobe concerning for pulmonaryedema. Given the minimal air bronchograms, follow-up the resolutionrecommended to exclude underlying neoplasm. 3 month follow-up CT recommended. Limited evaluation of the upper abdomen demonstrates diffuse hepaticsteatosis. Correlation for steatohepatitis recommended. Referred By: Interpreted By: Rosendo Panchal MD, 07/15/2024 1:10 PM Paul Kennedy PA-C CT Final Resul t * TROPONIN, QUANT (07/15/2024 11:46 AM [facility]) Only the most recent of2 resultswithin the time period is included. TROPONIN I HIGH SENSITIVITY 5 <79 ng/L 07/15/2024 12:16 PM [facility] Comment: HIGH DOSES OF BIOTIN, TROPONIN-SPECIFIC AUTOANTIBODIES, AND ANTIBODY THERAPY CONTAINING HAMA MAY INTERFERE WITH THIS TEST RESULT. CORRELATION TO CLINICAL HISTORY AND PRESENTATION RECOMMENDED. 07/15/2024 11:4 6 AM [facility] Paul Kennedy PA-C LABORATORY Final Resul t [facility] [address] [place] [address], [place] [phone] * XR CHEST PORTABLE (07/15/2024 10:00 AM [facility]) Anatomical Region Laterality Modality Chest Radiographic Za ging 07/15/2024 10:2 2 AM [facility] Impressions 07/15/2024 10:23 AM [facility] IMPRESSION: No radiographic evidence of an acute cardiopulmonary abnormality. Ordered By: PAUL KENNEDY Interpreted By: Clarence Gonzalez MD, 07/15/2024 10:22 AM Narrative 07/15/2024 10:23 AM [facility] [address] [address] Examination: Chest radiograph Exam date/time: 07/15/2024 9:39 AM Reason For Exam: ??Chest pain ? Comparison: None available Technique: Upright AP view of the chest. Findings: ??Heart size is at the upper limits of normal. Pulmonary vascular pattern appears unremarkable. No focal pulmonary consolidation. No pleural effusion. No pneumothorax. Procedure Note Clarence Gonzalez MD - 07/15/[address] [address] Examination: Chest radiograph Exam date/time: 07/15/2024 9:39 AM Reason For Exam: Chest pain Comparison: None available Technique: Upright AP view of the chest. Findings: Heart size is at the upper limits of normal. Pulmonary vascularpattern appears unremarkable. No focal pulmonary consolidation. No pleuraleffusion. No pneumothorax. IMPRESSION: No radiographic evidence of an acute cardiopulmonary abnormality. Ordered By: PAUL KENNEDY Interpreted By: Clarence Gonzalez MD, 07/15/2024 10:22 AM Paul Kennedy PA-C GENERAL IMAGING Final Resul t * (ABNORMAL) COMPREHENSIVE METABOLIC PANEL (07/15/2024 9:43 AM [facility]) GLUCOSE 185(H) 70 - 99 MG/DL 07/15/2024 10:23 AM [facility] BUN 25(H) 7 - 18 MG/DL 07/15/2024 10:23 AM [facility] CREATININE S/P/B 1.60(H) 0.7 - 1.3 MG/DL 07/15/2024 10:23 AM [facility] SODIUM S/P/B 137 136 - 145 MMOL/L 07/15/2024 10:23 AM [facility] POTASSIUM S/P/B 3.8 3.5 - 5.1 MMOL/L 07/15/2024 10:23 AM [facility] CHLORIDE S/P/B 103 97 - 115 MMOL/L 07/15/2024 10:23 AM [facility] CO2 28.2 21 - 32 MMOL/L 07/15/2024 10:23 AM [facility] CALCIUM S/P/B 9.1 8.5 - 10.1 MG/DL 07/15/2024 10:23 AM [facility] BILIRUBIN TOTAL S/P/B 2.4(H) 0.2 - 1.2 MG/DL 07/15/2024 10:23 AM [facility] Comment: THIS ASSAY IS NOT RECOMMENDED FOR PATIENTS UNDERGOING TREATMENT WITH ELTROMBOPAG DUE TO THE POTENTIAL FOR FALSELY ELEVATED RESULTS. TOTAL PROTEIN S/P/B 7.6 6.4 - 8.2 G/DL 07/15/2024 10:23 AM [facility] ALBUMIN S/P/B 3.2(L) 3.4 - 5.0 G/DL 07/15/2024 10:23 AM [facility] AST 21 15 - 37 U/L 07/15/2024 10:23 AM [facility] ALT 41 16 - 60 U/L 07/15/2024 10:23 AM [facility] ALKALINE PHOSPHATASE S/P/B 74 50 - 136 U/L 07/15/2024 10:23 AM [facility] ANION GAP 5.8 2 - 10 MMOL/L 07/15/2024 10:23 AM [facility] BUN CREATININE RATIO 15.6 6 - 26 07/15/2024 10:23 AM [facility] A/G RATIO 0.7(L) 1.0 - 2.0 RATIO 07/15/2024 10:23 AM [facility] TANNER [facility] GFR ESTIMATE 55(L) >90 ML/MIN/1.7 3 M2 07/15/2024 10:23 AM [facility] TANNER [facility] Comment: NOTE: eGFR is not calculated for patients <18 years of age or gender unknown. This is an estimated GFR calculation using the new CKD EPI creatinine equation without race and so does not require a correction factor for race. This estimated GFR should not be used for calculating drug doses. 07/15/2024 9:43 AM [facility] Paul Kennedy PA-C LABORATORY Final Resul t Performing Organization Address [facility] Co de Phone Number [facility] [address] [place] [id number], [place] [phone] * (ABNORMAL) D-DIMER, QUANTITATIVE (07/15/2024 9:43 AM [facility]ANNER) D-DIMER 969(HH) 0 - 500 ng{FEU}/mL 07/15/2024 11:10 AM [facility] Comment: D-Dimer values less than or equal to 500 ng/mL FEU have a negative predictive value of >95% for exclusion of deep vein thrombosis and pulmonary embolism. In patients over 50 (who tend to have higher normal baseline D-Dimer values), recent studies suggest age-adjusted D-Dimer cutoff values (calculated as: age [years] x 10 ng/mL) result in equivalent outcomes and no additional false negative findings. Successful Call: [facility] called 07/15/2024 11:10 AM to EMERGENCY ROOM (Mariel/LYNDSAY CRISTINA) by [id number]. Read Back: Yes 07/15/2024 9:43 AM CHROME TANNER Paul Kennedy PA-C LABORATORY Final Resul t Performing Organization Address City/[facility]/ZIP Co de Phone Number [facility] [address] [place] [address], * Critical Care (07/15/2024 9:36 AM CHROME TANNER) Narrative Bjorn Stephenson MD - 07/15/2024 9:36 AM CHROME TANNER Paul Kennedy PA-C ? 07/15/2024 ??2:02 PM Critical Care Performed by: Paul Kennedy PA-C Authorized by: Paul Kennedy PA-C ?? Critical care provider statement: ??Critical care time (minutes): ??60 ??Critical care start time: ??07/15/2024 12:49 PM ??Critical care end time: ??07/15/2024 1:49 PM ??Critical care time was exclusive of: ??Separately billable procedures and treating other patients and teaching time ??Critical care was necessary to treat or prevent imminent or life-threatening deterioration of the following conditions: ??Renal failure and sepsis ??Critical care was time spent personally by me on the following activities: ??Blood draw for specimens, development of treatment plan with patient or surrogate, evaluation of patient's response to treatment, examination of patient, obtaining history from patient or surrogate, ordering and performing treatments and interventions, ordering and review of laboratory studies, ordering and review of radiographic studies, pulse oximetry and re-evaluation of patient's condition ??I assumed direction of critical care for this patient from another provider in my specialty: no ?Care discussed with: admitting provider ?? Paul Kennedy PA-C PROCEDURE/MINOR SURGICAL OR DERABLES Final Result * ECG 12 lead (07/15/2024 9:34 AM CHROME TANNER) 07/15/2024 9:34 AM CHROME TANNER Narrative [facility] RAD - 07/15/2024 9:32 AM CHROME TANNER ?[facility] ? [address], [place] ? Test Date: ?2024-07-15 Pat Name: ? MARCIA AMIN ? Department: ?? 41 ? Room: ? Gender: ? Male ? Vegetable Sorter: ?? [id number] : ?1980 ? Requested By: PAUL KENNEDY Order Number: [id number] ? Reading MD: ?? Rg Espinosa ? Measurements Intervals ?[place] ? Rate: ? 118 ?P: ?42 [place]: ? 129 ?QRS: ?53 QRSD: ? 101 ?T: ?43 QT: ? 300 ? QTc: ?422 ? Interpretive Statements SINUS TACHYCARDIA ABNORMAL RHYTHM ECG No previous ECG available for comparison ME TANNER Procedure Note Rg Espinosa MD - 07/15/2024 [facility] [address] Test Date: 2024-07-15 Pat Name: MARCIA AMIN Department: 41 Room: Gender: Male Vegetable Sorter: [id number] : 1980 Requested By: PAUL KENNEDY Order Number: [id number] Reading MD: Rg Espinosa Measurements Intervals [place] Rate: 118 P: 42 [place]: 129 QRS: 53 QRSD: 101 T: 43 QT: 300 QTc: 422 Interpretive Statements SINUS TACHYCARDIA ABNORMAL RHYTHM ECG No previous ECG available for comparison ME TANNER us Paul Kennedy PA-C ECG ORDERABLES Final Resul t [facility] RAD [facility] Last 3 Months Insurance [facility] Care Teams Clay Transporter Relationship Specialty Start Date End Date Bianca Copeland MD [address] [facility] [address] [place] [address] PCP - General FAMILY PRACTICE 07/15/24
--- OUTSIDE RECORDS SUMMARY | 2024-08-11 16:51 | XMS_ITS | Referral Summary ---
Author Organization [facility] Address [address] [place] [address] Care Team Providers Care Ceo & Co Founder Name Role Phone Bianca Copeland MD Primary Care Provider + Source Comments [facility],non-owned Affiliates and Associated Physician Practices is amultiple site organization consisting of ambulatory clinics and hospital sitesin [place], [place], [place] and [place]. This disclosure is being madepursuant to the Care Everywhere program and may not contain all information available regarding this patient. Last updated 18.[employer] [facility] Allergies No known active allergies Medications * [...] Comments Blood Pressure 118/76 09/19/2016 2:27 PM BROADCAST DESIGNER Pulse 71 09/19/2016 2:27 PM BROADCAST DESIGNER Temperature 36.9 ??C (98.4 ??F) 09/19/2016 2:27 PM CS T Respiratory Rate 16 09/19/2016 2:27 PM BROADCAST DESIGNER Oxygen Saturation 97% 09/19/2016 2:27 PM BROADCAST DESIGNER Inhaled Oxygen Concentration - - Weight 95.3 kg (210 lb) 09/19/2016 2:27 PM BROADCAST DESIGNER Height 182.9 cm (6') 09/19/2016 2:27 PM BROADCAST DESIGNER Body Mass Index 28.48 09/19/2016 2:27 PM BROADCAST DESIGNER Plan of Treatment Not on file Care Teams Ceo & Co Founder Relationship Specialty Start Date End Date Bianca Copeland MD [address] [place] [address] PCP - General Family Medicine 03/19/16
--- OUTSIDE RECORDS SUMMARY | 2024-08-11 16:51 | XMS_ITS | Patient Health Summary ---
Author Organization [facility] Address [address] [facility] [place] [address] Care Team Providers Care Wood [employer] Products Labourer Name Role Phone Bianca Copeland MD Primary Care Provider + Note from [facility],non-owned Affiliates and Associated Physician Practices is amultiple site organization consisting of ambulatory clinics and hospital sitesin [place], [place], [place] and [place]. This disclosure is being madepursuant to the Care Everywhere program and may not contain all information available regarding this patient. Last updated 18.[facility] Allergies No known active allergies Medications * Be aware that medications may not be up to date on this document. Alwaysverify current medications with the patient. * predniSONE (DELTASONE) 10 MG tablet(Started 09/19/2016) 40mg daily for 3 days then 20mg daily for 2 days then stop Social History Tobacco Use Types Packs/Day Years Used Date Smoking Tobacco: Never Sex and Gender Information Value Date Recorded Sex Assigned at Not on file Gender Identity Not on file Sexual Orientation Not on file Last Filed Vital Signs Vital Sign Reading Time Taken Comments Blood Pressure 118/76 09/19/2016 2:27 PM ORACLE PROGRAMMER ANALYST Pulse 71 09/19/2016 2:27 PM ORACLE PROGRAMMER ANALYST Temperature 36.9 ??C (98.4 ??F) 09/19/2016 2:27 PM CS T Respiratory Rate 16 09/19/2016 2:27 PM ORACLE PROGRAMMER ANALYST Oxygen Saturation 97% 09/19/2016 2:27 PM ORACLE PROGRAMMER ANALYST Inhaled Oxygen Concentration - - Weight 95.3 kg (210 lb) 09/19/2016 2:27 PM ORACLE PROGRAMMER ANALYST Height 182.9 cm (6') 09/19/2016 2:27 PM ORACLE PROGRAMMER ANALYST Body Mass Index 28.48 09/19/2016 2:27 PM ORACLE PROGRAMMER ANALYST Care Teams [employer] Labourer Relationship Specialty Start Date End Date Bianca Copeland MD [address] [facility] [address] [place] [address] PCP - General Family Medicine 03/19/16
== END 2024-08-11 16:48 | disposition home or self-care (01) ==
PROVIDERS: PCP Family Medicine; Visit Provider Physician Assistant
DX: M17.12 Unilateral primary osteoarthritis, left knee (principal); M25.462 Effusion, left knee
CPT/HCPCS: 73562

== ENCOUNTER 2024-10-17 16:11 | Outpatient (CLI) | payer BC, SELFPAY ==
--- NOTE | ~2024-10-17 | CT_ITS ---
CT Scan of the Chest without Contrast: Clinical Indication: Pneumonia Technique: Contiguous sections were acquired throughout the chest without intravenous contrast. Dose reduction technique was used on this scan by utilizing automated exposure control and iterative recon struction technique. The dose-length product (DLP) was 335.60 mGy-cm. Findings: There is no evidence of any significant mediastinal, hilar or axillary lymphadenopathy. The mediastin al soft tissues appear normal. There is no evidence of pleural or pericardial effusion. The lungs are clear. No pulmonary nodules or infiltrates are noted. Images through the upper abdomen reveal diffuse fatty infiltration of liver. Impression: No significant abnormalities seen in the chest. Diffuse fatty infiltration of the liver. Reviewed, dictated and finalized at location . Impression: No significant abnormalities seen in the chest. Diffuse fatty infiltration of the liver.
--- OUTSIDE RECORDS SUMMARY | 2024-10-17 17:53 | XMS_ITS | Clinical Summary ---
Author Organization [facility] Address [address] [place] [address] Care Team Providers Care Piece Marker Small Arms Name Role Phone Bianca Copeland MD Primary Care Provider [phone]- [phone] Allergies No known active allergies Medications XYOSTED 100 MG/0.5ML Solution Auto-injector Inject 100 mg into the muscle once a week. 06/27/2024 Active Active Problems Problem Noted Date Diagnosed Date Pneumonia 07/15/2024 Social History Tobacco Use Types Packs/Day Years [...] from your doctor or pharmacy? Never 07/15/2024 [facility] Utilities Answer Date Recorded In the past 12 months has [facility] [employer] Broker Sales, gas, oil, or water [employer] threatened to shut off services in your [...] Never 07/15/2024 How often do you attend rastafarian or adventism serv ices? Never 07/15/2024 Do you belong to any clubs o r organizations such as rastafarian groups, unions, fraternal or athletic groups, or [...] and heating? Not hard at all 07/15/2024 [facility] - Occupational Stress [...] any time in the past 12 m [place], were you homeless or living in a penitentiary (including now)? No 07/15/2024 Sex and Gender Information Value Date Recorded Sex Assigned at Not on file Legal Sex Male 6:48 PM SURFACE ROOM SHOP OPTICIAN Gender Identity Not on file Sexual Orientation Not on file Last Filed Vital Signs Vital Sign Reading Time Taken Comments Blood Pressure 131/65 07/16/2024 8:30 AM SURFACE ROOM SHOP OPTICIAN Pulse 95 07/16/2024 8:30 AM SURFACE ROOM SHOP OPTICIAN Temperature 36.5 C (97.7 F) 07/16/2024 8:30 AM SURFACE ROOM SHOP OPTICIAN Respiratory Rate 17 07/16/2024 8:30 AM SURFACE ROOM SHOP OPTICIAN Oxygen Saturation 98% 07/16/2024 8:30 AM SURFACE ROOM SHOP OPTICIAN Inhaled Oxygen Concentration - - Weight 113.9 kg (251 lb 1.7 oz) 07/15/2024 9:32 AM SURFACE ROOM SHOP OPTICIAN Height 185.4 cm (6' 1 ) 07/15/2024 9:32 AM SURFACE ROOM SHOP OPTICIAN Body Mass Index 33.13 07/15/2024 9:32 AM SURFACE ROOM SHOP OPTICIAN Plan of Treatment Health Maintenance Due Date Last Done Comments Annual Physical 1984 Hepatitis C 12/01/1999 Hepatitis B Vaccines (1 of 3 - 19+ 3-dose series) 2000 COVID-19 Vaccine (2023-2 5 season) 2024 04/26/2021, 03/30/2021 Influenza Adult [...] on patient's age to complete this topic Insurance [facility] Care Teams Piece Marker Small Arms Relationship Specialty Start Date End Date Bianca Copeland MD [address] [facility] [address] [place] [address] PCP - General FAMILY PRACTICE 07/15/24
--- OUTSIDE RECORDS SUMMARY | 2024-10-17 17:53 | XMS_ITS | Clinical Summary ---
Author Organization [facility] Address [address] [facility] [place] [address] Care Team Providers Care Clinical Rehabilitation Aide Name Role Phone Bianca Copeland MD Primary Care Provider + Source Comments [facility],non-owned Affiliates and Associated Physician Practices is amultiple site organization consisting of ambulatory clinics and hospital sitesin [place], [place], [place] and [place]. This disclosure is being madepursuant to the Care Everywhere program and may not contain all information available regarding this patient. Last updated 18.[facility] Allergies No known active allergies Medications * [...] Comments Blood Pressure 118/76 09/19/2016 2:27 PM MOLDING MACHINE OPERATOR Pulse 71 09/19/2016 2:27 PM MOLDING MACHINE OPERATOR Temperature 36.9 C (98.4 F) 09/19/2016 2:27 PM MOLDING MACHINE OPERATOR Respiratory Rate 16 09/19/2016 2:27 PM MOLDING MACHINE OPERATOR Oxygen Saturation 97% 09/19/2016 2:27 PM MOLDING MACHINE OPERATOR Inhaled Oxygen Concentration - - Weight 95.3 kg (210 lb) 09/19/2016 2:27 PM MOLDING MACHINE OPERATOR Height 182.9 cm (6') 09/19/2016 2:27 PM MOLDING MACHINE OPERATOR Body Mass Index 28.48 09/19/2016 2:27 PM MOLDING MACHINE OPERATOR Plan of Treatment Health Maintenance Due Date Last Done Comments LIPID TESTING 1980 HIV SCREENING 1996 HEPATITIS C SCREENING 11/26/1999 DTAP/TDAP/TD VACCINES (1 - Tdap) 2000 HEPATITIS B VACCINE (1 of 3 - 19+ 3-dose series) 2000 COVID-19 VACCINE (1 - 2023-2 5 season) 2024 DEPRESSION SCREENING 07/13/2024 INFLUENZA VACCINE (Season Ended) 2025 ZOSTER VACCINE (1 of 2) 12/01/2031 HIB VACCINE Aged Out No longer eligi ble based on patient's age to complete this topic HPV VACCINE Aged Out No longer eligi ble based on patient's age to complete this topic MENINGOCOCCAL (Group B) VACC INE SHARED DECISION-MAKING Aged Out No longer eligibl e based on patient's age to complete this topic MENINGOCOCCAL GROUPS A/C/Y/W VACCINE Aged Out No longer eligible b ased on patient's age to complete this topic PNEUMOCOCCAL VACCINE Aged Out No long er eligible based on patient's age to complete this topic Care Teams Clinical Rehabilitation Aide Relationship Specialty Start Date End Date Bianca Copeland MD [address] [place] [address] PCP - General Family Medicine 03/19/16
== END 2024-10-17 16:12 | disposition home or self-care (01) ==
PROVIDERS: PCP Family Medicine; Visit Provider Student in an Organized Health Care Education/Training Program
DX: J18.1 Lobar pneumonia, unspecified organism (principal); K76.0 Fatty (change of) liver, not elsewhere classified
CPT/HCPCS: 71250